=== PATIENT | female | born 1960 ===

== ENCOUNTER 2016-09-09 13:22 | Emergency (ER) | payer MEDICAID ==
[2016-09-09 13:23] VITALS: BMI 35.5
[2016-09-09 13:42] VITALS: RESP 20; TEMP 98.9
--- NOTE | 2016-09-09 14:14 | ED PDOC ---
Arrival/HPI - General Chief Complaint: Upper Extremity Problem/Injury Time Seen by Provider: 09/09/16 14:09 Historian: Patient - History of Present Illness Narrative History of Present Illness (Text): 09/09/16 14:10 56 year old female presents to the emergency department with intermittent left arm discomfort that began five months ago. She states pain begins in the left shoulder and radiates down to the forearm, associated with some tingling. She also reports dizziness described as room spinning. Patient states she last had these symptoms 3 weeks ago, but she experienced them again today at 10:00 so she came to the ER for evaluation. Denies trauma or injury. PMD: Dr. Atkinson Time/Duration: > month Symptom Onset: Gradual Symptom Course: Intermittent Modifying Factors (Text): None Past Medical History - Provider Review Nursing Documentation Reviewed: Yes - Infectious Disease Hx of Infectious Diseases: None - Tetanus Immunization Tetanus Immunization: Unknown - Cardiac Hx Hypertension: Yes - Endocrine/Metabolic Hx Diabetes Mellitus Type 2: Yes - Psychiatric Hx Depression: No Hx Emotional Abuse: No Hx Physical Abuse: No Hx Substance Use: No - Surgical History Hx Section: Yes Hx Tubal Ligation: Yes - Anesthesia Hx Anesthesia Reactions: No Hx Malignant Hyperthermia: No - Suicidal Assessment Feels Threatened In Home Enviroment: No Family/Social History - Physician Review Nursing Documentation Reviewed: Yes Family/Social History: Unknown Family HX Smoking Status: Never Smoked Hx Alcohol Use: No Hx Substance Use: No Hx Substance Use Treatment: No Allergies/Home Meds Allergies/Adverse Reactions: Allergies No Known Allergies Allergy (Verified 09/09/16 13:41) Review of Systems - Physician Review All systems were reviewed & negative as marked: Yes - Review of Systems Eyes: absent: Vision Changes Musculoskeletal: Other (Left arm pain, shoulder radiating to forearm) Neurological: Dizziness (room spinning). absent: Focal Weakness Physical Exam - Physical Exam Narrative Physical Exam (Text): Constitutional: No acute distress. Head: Normocephalic. Atraumatic. Eyes: PERRL. ENT: Moist mucous membranes. Neck: Supple. Cardiovascular: Regular rate. Chest: No tenderness. Respiratory: Clear to auscultation bilaterally. GI: Soft. Nontender. Nondistended. Back: No CVA tenderness. Musculoskeletal: No tenderness or swelling of extremities. Skin: No rash. Neurologic: Alert, no focal deficit. Vital Signs Reviewed: Yes Vital Signs Temp Pulse Resp BP Pulse Ox 09/09/16 15:19 88 20 113/78 98 09/09/16 13:35 98.9 F 102 H 20 106/76 97 Temperature: Afebrile Blood Pressure: Normal Pulse: Tachycardic Respiratory Rate: Normal Appearance: Positive for: Well-Appearing, Non-Toxic Mental Status: Positive for: Alert and Oriented X 3 Medical Decision Making ED Course and Treatment: Impression: 56 year old female presents to the emergency department with left arm pain that began five months ago. Plan: -- EKG -- Reassess and disposition Prior Visits: Notes and results from previous visits were reviewed. Patient was last seen in the Emergency department on 09/18/15 for dizziness and discharged home. Progress Notes: EKG NSR, 80 bpm, no ST/T wave changes. Patient in no acute distress. Months long pains with history of back pain, likely radiculopathy, cervical to arm and lumbar to hip and existing history of vertigo, on Antivert already, with dizziness described as room spinning today. Will discharge home, f/u PMD, return to ER for worsening pain, dyspnea, nausea, vomiting, diaphoresis, or any other problem. - Scribe Statement The provider has reviewed the documentation as recorded by the Sabas Vasquez Provider Scribe Attestation: All medical record entries made by the Sabas were at my direction and personally dictated by me. I have reviewed the chart and agree that the record accurately reflects my personal performance of the history, physical exam, medical decision making, and the department course for this patient. I have also personally directed, reviewed, and agree with the discharge instructions and disposition. Disposition/Present on Arrival - Present on Arrival Any Indicators Present on Arrival: No History of DVT/PE: No History of Uncontrolled Diabetes: No Urinary Catheter: No History of Decub. Ulcer: No History Surgical Site Infection Following: None - Disposition Have Diagnosis and Disposition been Completed?: Yes Diagnosis: Cervical radiculopathy Disposition: HOME/ ROUTINE Disposition Time: 14:38 Patient Plan: Discharge Condition: STABLE Discharge Instructions (ExitCare): Cervical Radiculopathy (ED) Prescriptions: Ibuprofen [Motrin] 600 mg PO Q6 #25 tab Meclizine [Antivert] 25 mg PO TID PRN #20 tab PRN Reason: Dizziness Referrals: Bhupendra Atkinson APN [Primary Care Provider] - Follow up with primary
[2016-09-09 15:21] VITALS: BP 113/78; PULSE 88; O2SAT 98
--- NOTE | 2016-09-10 09:40 | CARD ---
APPROVED REPORT EKG Measurement Heart [id number] <Conclusion> Normal sinus rhythm Normal ECG No change
== END 2016-09-09 15:19 | disposition home or self-care (01) ==
LOC: ED 13:22
DX: M54.12 Radiculopathy, cervical region (principal); I10 Essential (primary) hypertension

== ENCOUNTER 2018-02-17 02:38 | Emergency (ER) | payer MEDICAID ==
[2018-02-17 02:39] VITALS: BMI 35.5
--- NOTE | 2018-02-17 03:34 | ED PDOC ---
Arrival/HPI - General Chief Complaint: Chest Pain Time Seen by Provider: 02/17/18 02:44 Historian: Patient - History of Present Illness Narrative History of Present Illness (Text): 02/17/18 03:16 02/17/18 03:16 57 year old female, whose past medical history includes pre-diabetes, presents to the emergency department complaining of chest pain that began 8-9 hours ago (20:10) associated with left arm tingling sensation. Patient reports chest pain with deep breaths associated with nausea. She reports similar pain 8 months ago, but did not do anything since the pain began to subsided. Patient reports she recently traveled. The patient denies any fever, chills, shortness of breath, abdominal pain, vomiting, diarrhea, urinary symptoms, back pain, neck pain, headache, dizziness, or any other complaints. Time/Duration: Other (8-9 hours) Symptom Onset: Gradual Symptom Course: Unchanged Activities at Onset: Light Context: Home Past Medical History - Provider Review Nursing Documentation Reviewed: Yes - Travel History Have you recently traveled outside [place] w/in the past 3 mons?: Yes - Infectious Disease Hx of Infectious Diseases: None - Tetanus Immunization Tetanus Immunization: Unknown - Reproductive Menopause: Yes - Cardiac Hx Hypertension: Yes - Endocrine/Metabolic Other/Comment: Pre DM - Psychiatric Hx Depression: No Hx Emotional Abuse: No Hx Physical Abuse: No Hx Substance Use: No - Surgical History Hx Section: Yes Hx Tubal Ligation: Yes - Anesthesia Hx Anesthesia: Yes Hx Anesthesia Reactions: No Hx Malignant Hyperthermia: No - Suicidal Assessment Feels Threatened In Home Enviroment: No Family/Social History - Physician Review Nursing Documentation Reviewed: Yes Family/Social History: No Known Family HX Smoking Status: Never Smoked Hx Alcohol Use: No Hx Substance Use: No Hx Substance Use Treatment: No Allergies/Home Meds Allergies/Adverse Reactions: Allergies No Known Allergies Allergy (Verified 02/17/18 02:57) Home Medications: Home Meds Medication Instructions Recorded Confirmed No Known Home Med 02/17/18 02/17/18 Review of Systems - Physician Review All systems were reviewed & negative as marked: Yes - Review of Systems Constitutional: absent: Fevers, Other (Chills) Respiratory: absent: SOB Cardiovascular: Chest Pain Gastrointestinal: Nausea. absent: Abdominal Pain, Diarrhea, Vomiting Genitourinary Female: absent: Dysuria, Frequency, Hematuria Musculoskeletal: absent: Back Pain, Neck Pain Neurological: Other (left arm tingling sensation). absent: Headache, Dizziness Physical Exam Vital Signs Reviewed: Yes Vital Signs Temp Pulse Resp BP Pulse Ox 02/17/18 02:46 98.4 F 82 20 143/96 H 97 Temperature: Afebrile Blood Pressure: Hypertensive Pulse: Regular Respiratory Rate: Normal Appearance: Positive for: Well-Appearing, Non-Toxic, Comfortable Pain Distress: None Mental Status: Positive for: Alert and Oriented X 3 - Systems Exam Head: Present: Atraumatic, Normocephalic Pupils: Present: PERRL Extroacular Muscles: Present: EOMI Conjunctiva: Present: Normal Mouth: Present: Moist Mucous Membranes Neck: Present: Normal Range of Motion Respiratory/Chest: Present: Clear to Auscultation, Good Air Exchange. No: Respiratory Distress, Accessory Muscle Use Cardiovascular: Present: Regular Rate and Rhythm, Normal S1, S2. No: Murmurs Abdomen: No: Tenderness, Distention, Peritoneal Signs Back: Present: Normal Inspection Upper Extremity: Present: Normal Inspection. No: Cyanosis, Edema Lower Extremity: Present: Normal Inspection. No: Edema Neurological: Present: GCS=15, CN II-XII Intact, Speech Normal Skin: Present: Warm, Dry, Normal Color. No: Rashes Psychiatric: Present: Alert, Oriented x 3, Normal Insight, Normal Concentration Medical Decision Making ED Course and Treatment: 02/17/18 03:16 Impression: 57 year old female presents complaining of chest pain with deep respiration that began 8-9 hours ago (20:10) associated with left arm tingling sensation. Plan: -- EKG -- Labs -- CXR -- Reassess and disposition Progress Notes: EKG shows NSR at 86 BPM with normal intervals, normal axis, No ST elevation or depression. Interpreted by me 02/17/18 04:25 Heart score: 2 points low score 02/17/18 04:30 CXR Impression: As read by [email or web address]. Results of w/u (labs, ekg and cxr netgative) d/w patient. Plan repeat trop. Patient agreeable w/POC. 02/17/18 06:46 Trop neg x 2. Patient comfortable throughout course in ED. Plan d/c home to f/u w/pcp and RTED for new or concerning symptoms. Patient verbalized understanding of d/c instructions and was given an opportunity to ask questions. - RAD Interpretation Fire Control Assistant: ED Physician - EKG Interpretation Interpreted by ED Physician: Yes Type: 12 lead EKG - Scribe Statement The provider has reviewed the documentation as recorded by the Sabas Jarquin Provider Scribe Attestation: All medical record entries made by the Scribe were at my direction and personally dictated by me. I have reviewed the chart and agree that the record accurately reflects my personal performance of the history, physical exam, medical decision making, and the department course for this patient. I have also personally directed, reviewed, and agree with the discharge instructions and disposition. Disposition/Present on Arrival - Present on Arrival Any Indicators Present on Arrival: No History of DVT/PE: No History of Uncontrolled Diabetes: No Urinary Catheter: No History of Decub. Ulcer: No History Surgical Site Infection Following: None - Disposition Have Diagnosis and Disposition been Completed?: Yes Diagnosis: Atypical chest pain Disposition: HOME/ ROUTINE Disposition Time: 06:48 Patient Plan: Discharge Patient Problems: Current Active Problems Problem Status Onset Atypical chest pain Acute Condition: STABLE Discharge Instructions (ExitCare): Chest Pain (ED), Chest Pain That Is Not Caused by the Heart (DC) Additional Instructions: TARYN GRAYSON, thank you for letting us take care of you today. Your provider was Tiffany Love MD and you were treated for CHEST. The emergency medical care you received today was directed at your acute symptoms. If you were prescribed any medication, please fill it and take as directed. It may take several days for your symptoms to resolve. Return to the Emergency Department if your symptoms worsen, do not improve, or if you have any other problems. Please contact your doctor or call one of the physicians/clinics you have been referred to that are listed on the Patient Visit Information form that is included in your discharge packet. Bring any paperwork you were given at discharge with you along with any medications you are taking to your follow up visit. Our treatment cannot replace ongoing medical care by a primary care provider outside of the emergency department. Thank you for allowing the [facility] team to be part of your care today. If you had an X-Ray or CT scan: A Radiologist will review the ED reading if any change in treatment is needed we will contact you. If you had a blood, urine, or wound culture: It will take several days for the results, if any change in treatment is needed we will contact you. If you had an STI test: It will take 48 hours for the results. Please call after 1 week if you have not heard back. Referrals: [facility] [Outside] - Follow up with primary [facility] [place] - Follow up with primary Sandy Remy MD [Medical Doctor] - Follow up with primary Forms: [employer] (Belgian)
[2018-02-17 03:39] LABS: BASO # 0.01 K/mm3 (0.0-2.0); BASO % 0.2 % (0.0-3.0); EOS # 0.3 (0.0-0.7); EOS % 4.5 % (1.5-5.0); GRAN # 2.71 (1.4-6.5); GRAN % 45.2 % (50.0-68.0); HEMOGLOBIN 12.7 g/dL (12.0-16.0); LYMPH # 2.7 (1.2-3.4); LYMPH % 44.4 % (22.0-35.0); MEAN CELL VOLUME 88.2 fl (80.0-105.0); MEAN CORPUSCULAR HEMOGLOBIN 28.3 pg (25.0-35.0); MEAN CORPUSCULAR HGB CONC 32.2 g/dl (31.0-37.0); MEAN PLATELET VOLUME 10.5 fl (7.0-11.0); MONO # 0.3 (0.1-0.6); MONO % 5.7 % (1.0-6.0); RBC 4.48 10^6/uL (3.5-6.1); RED CELL DISTRIBUTION WIDTH 13.2 % (11.5-14.5)
[2018-02-17 03:54] LABS: ALB/GLOB RATIO 1.1 (1.1-1.8); ALT/SGPT 26 U/L (7-56); AST/SGOT 33 U/L (14-36); BLOOD UREA NITROGEN 14 mg/dL (7-21); CALCIUM 8.7 mg/dL (8.4-10.5); GFR NON-AFRICAN AMERICAN > 60
[2018-02-17 04:05] LABS: TROPONIN I < 0.01 ng/mL
[2018-02-17 07:02] VITALS: BP 128/79; PULSE 72; RESP 18; TEMP 98.2; O2SAT 100
--- NOTE | 2018-02-17 09:27 | RAD ---
HISTORY: chest pain COMPARISON: Chest x-ray performed 04/05/12 TECHNIQUE: Chest, one view. FINDINGS: Examination limited by habitus. LUNGS: No focal consolidation. Please note that chest x-ray has limited sensitivity for the detection of pulmonary masses. PLEURA: No significant pleural effusion identified. No definite pneumothorax . CARDIOVASCULAR: Heart size appears within normal limits. No significant atherosclerotic calcification present. OSSEOUS STRUCTURES: No acute osseous abnormality identified. VISUALIZED UPPER ABDOMEN: Unremarkable. OTHER FINDINGS: None. IMPRESSION: No focal consolidation.
--- NOTE | 2018-02-17 14:44 | CARD ---
APPROVED REPORT Date of service: 02/17/2018 EKG Measurement Heart [id number] <Conclusion> Normal sinus rhythm Normal Electrocardiogram
== END 2018-02-17 07:02 | disposition home or self-care (01) ==
LOC: ED 02:38
DX: R07.89 Other chest pain (principal); I10 Essential (primary) hypertension; R73.03 Prediabetes

== ENCOUNTER 2018-07-31 12:04 | Observation (INO) | payer MEDICAID ==
[2018-07-31 12:23] VITALS: BMI 38.7
[2018-07-31] MEDS ORDERED: Aspirin 325 mg EC Tablets PO STA (12:23)
--- NOTE | 2018-07-31 12:41 | ED PDOC ---
Arrival/HPI - General Time Seen by Provider: 07/31/18 12:14 Historian: Patient, Family (Granddaughter.) - History of Present Illness Narrative History of Present Illness (Text): 07/31/18 12:38 57 year old female, whose past medical history includes pre-diabetes, presents to the emergency department complaining of chronic left sided chest pain for years that began to radiate to the upper extremities last night. Patient states not having any history of smoking or alcohol usage. Patient denies shortness of breath, abdominal pain, vomiting, nausea, allergies, headache, dizziness, or any other complaints. Granddaughter functioning as special events assistant as per patient's request. PMD: Nick. 4 Time/Duration: 24 hours, Other Symptom Onset: Gradual Symptom Course: Unchanged Context: Home Associated Symptoms (Text): 07/31/18 12:47 Patient complains of chest pain with radiation to the left upper extremity since last night. She has had similar episodes multiple times over the last year. She also complains of numbness of her left upper and left lower extremity. The granddaughter translates. No dyspnea. No diaphoresis. No nausea or vomiting. No dizziness or lightheadedness. No hypertension or diabetes. Patient is a never smoker. No trauma. 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 Past Medical History - Provider Review Nursing Documentation Reviewed: Yes - Infectious Disease Hx of Infectious Diseases: None - Tetanus Immunization Tetanus Immunization: Unknown - Cardiac Hx Hypertension: Yes - Endocrine/Metabolic Other/Comment: Pre DM - Psychiatric Hx Depression: No Hx Emotional Abuse: No Hx Physical Abuse: No Hx Substance Use: No - Surgical History Hx Section: Yes Hx Tubal Ligation: Yes - Anesthesia Hx Anesthesia: Yes Hx Anesthesia Reactions: No Hx Malignant Hyperthermia: No - Suicidal Assessment Feels Threatened In Home Enviroment: No Family/Social History - Physician Review Nursing Documentation Reviewed: Yes Family/Social History: Unknown Family HX Smoking Status: Never Smoked Hx Alcohol Use: No Hx Substance Use: No Hx Substance Use Treatment: No Allergies/Home Meds Allergies/Adverse Reactions: Allergies No Known Allergies Allergy (Verified 02/17/18 02:57) Home Medications: Home Meds Medication Instructions Recorded Confirmed No Known Home Med 02/17/18 02/17/18 Review of Systems - Physician Review All systems were reviewed & negative as marked: Yes - Review of Systems Constitutional: absent: Fevers Respiratory: absent: SOB, Cough Cardiovascular: Chest Pain (Chest pain radiating to the upper bilateral extremities. ). absent: Palpitations, Syncope Gastrointestinal: absent: Abdominal Pain, Nausea, Vomiting Neurological: absent: Headache, Dizziness Physical Exam Vital Signs Reviewed: Yes Vital Signs Temp Pulse Resp BP Pulse Ox 07/31/18 12:31 97.9 F 87 20 138/63 98 Temperature: Afebrile Blood Pressure: Normal Pulse: Regular Respiratory Rate: Normal Appearance: Positive for: Well-Appearing, Non-Toxic, Comfortable, Other (Obese) Pain Distress: None Mental Status: Positive for: Alert and Oriented X 3 - Systems Exam Head: Present: Atraumatic, Normocephalic Pupils: Present: PERRL Extroacular Muscles: Present: EOMI Conjunctiva: Present: Normal Mouth: Present: Moist Mucous Membranes Pharnyx: No: ERYTHEMA, EXUDATE, TONSILS ENLARGED Neck: Present: Normal Range of Motion Respiratory/Chest: Present: Clear to Auscultation, Good Air Exchange. No: Respiratory Distress, Accessory Muscle Use, Tender to Palpation Cardiovascular: Present: Regular Rate and Rhythm, Normal S1, S2. No: Murmurs Abdomen: No: Tenderness, Distention, Peritoneal Signs, Rebound, Guarding Upper Extremity: Present: Normal Inspection. No: Cyanosis, Edema Lower Extremity: Present: Normal Inspection. No: Edema Neurological: Present: GCS=15, CN II-XII Intact, Speech Normal, Motor Func Grossly Intact, Normal Sensory Function, Normal Cerebellar Funct, Gait Normal Skin: Present: Warm, Dry, Normal Color. No: Rashes Psychiatric: Present: Alert Medical Decision Making ED Course and Treatment: 07/31/18 12:40 Impression: 57 y.o female who presents to emergency department complaining of chest pain radiating to the upper extremities. Plan: -- Labs -- EKG -- IV fluids -- Aspirin -- Chest X-ray -- Reassess and disposition Prior Visits: Notes and results from previous visits were reviewed. Progress Notes: 07/31/18 12:49 EKG shows normal sinus rhythm rate approximately 80 with a right bundle branch block and no acute ST or T wave changes. 07/31/18 13:[address] Tristan who accepts to her service on telemetry observation. - Lab Interpretations Narrative Lab Interpretation (Text): 07/31/18 13:45 07/31/18 13:15 07/31/18 13:15 Lab Results 07/31/18 13:15: Sodium 138, Potassium 4.5, Chloride 101, Carbon Dioxide 32, Anion Gap 11, BUN 13, Creatinine 0.7, Est GFR ( Amer) > 60, Est GFR (Non- Af Amer) > 60, Random Glucose 98, Calcium 9.0, Magnesium 2.0, Total Bilirubin 0.4, AST 23, ALT 17, Alkaline Phosphatase 58, Lactate Dehydrogenase 359, Total Creatine Kinase 66, Troponin I Pending, Total Protein 7.6, Albumin 3.8, Globulin 3.8, Albumin/Globulin Ratio 1.0 L 07/31/18 13:15: WBC 5.5, RBC 4.55, Hgb 13.0, Hct 40.5, MCV 89.0, MCH 28.6, MCHC 32.1, RDW 13.2, Plt Count 244, MPV 10.9, Neut % (Auto) 41.7 L, Lymph % (Auto) 45.1 H, [place] % (Auto) 7.3 H, Eos % (Auto) 5.5 H, Baso % (Auto) 0.4, Lymph # (Auto) 2.5, [place] # (Auto) 0.4, Eos # (Auto) 0.3, Baso # (Auto) 0.02, Absolute Neuts (auto) 2.27 I have reviewed the lab results: Yes - RAD Interpretation Narrative RAD Interpretations (Text): 07/31/18 12:44 Impression: Minimum bibasilar at electasis. Radiology Orders: 07/31/18 12:23 CHEST PORTABLE [RAD] Stat Chest one view as read by the radiologist shows atelectasis. No infiltrate effusion or cardiomegaly. Carpenter Labor Supervisor: Radiologist - Medication Orders Current Medication Orders: Discontinued Medications Aspirin (Ecotrin) 325 mg PO STAT STA Stop: 07/31/18 12:24 - Scribe Statement The provider has reviewed the documentation as recorded by the Herlindaibmargarito Kumari All medical record entries made by the Scribe were at my direction and personally dictated by me. I have reviewed the chart and agree that the record accurately reflects my personal performance of the history, physical exam, medical decision making, and the department course for this patient. I have also personally directed, reviewed, and agree with the discharge instructions and disposition. Disposition/Present on Arrival - Present on Arrival Any Indicators Present on Arrival: No History of DVT/PE: No History of Uncontrolled Diabetes: No Urinary Catheter: No History of Decub. Ulcer: No History Surgical Site Infection Following: None - Disposition Have Diagnosis and Disposition been Completed?: Yes Diagnosis: Chest pain, Paresthesia Disposition: HOSPITALIZED Disposition Time: 13:58 Patient Plan: Observation, Telemetry Condition: GOOD Discharge Instructions (ExitCare): Chest Pain (ED)
--- NOTE | 2018-07-31 12:48 | RAD ---
Date of service: 07/31/2018 HISTORY: cp chest pain COMPARISON: Comparison chest dated 02/17/2018. TECHNIQUE: 1 view obtained. FINDINGS: LUNGS: Minimal bibasilar atelectasis. PLEURA: No significant pleural effusion identified, no pneumothorax apparent. CARDIOVASCULAR: No aortic atherosclerotic calcification present. Normal cardiac size. No pulmonary vascular congestion. OSSEOUS STRUCTURES: No significant abnormalities. VISUALIZED UPPER ABDOMEN: Normal. OTHER FINDINGS: None. IMPRESSION: Minimal bibasilar atelectasis.
[2018-07-31 13:39] LABS: BASO # 0.02 K/mm3 (0.0-2.0); BASO % 0.4 % (0.0-3.0); EOS # 0.3 (0.0-0.7); EOS % 5.5 % (1.5-5.0); LYMPH # 2.5 (1.2-3.4); LYMPH % 45.1 % (22.0-35.0); MEAN CORPUSCULAR HEMOGLOBIN 28.6 pg (25.0-35.0); MEAN CORPUSCULAR HGB CONC 32.1 g/dl (31.0-37.0); MEAN PLATELET VOLUME 10.9 fl (7.0-11.0); MONO # 0.4 (0.1-0.6); MONO % 7.3 % (1.0-6.0); RBC 4.55 10^6/uL (3.5-6.1); RED CELL DISTRIBUTION WIDTH 13.2 % (11.5-14.5); WHITE BLOOD COUNT 5.5 10^3/uL (4.5-11.0)
[2018-07-31 13:43] LABS: ALBUMIN 3.8 g/dL (3.0-4.8); ALT/SGPT 17 U/L (7-56); AST/SGOT 23 U/L (14-36); BLOOD UREA NITROGEN 13 mg/dL (7-21); GFR NON-AFRICAN AMERICAN > 60
[2018-07-31 13:53] LABS: TROPONIN I < 0.01 ng/mL
[2018-07-31] MEDS: POLYETHYLENE GLYCOL 3350 17 GM/Dose PACKET PO SCH (15:45)
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
[2018-07-31 17:45] VITALS: RESP 20
--- NOTE | 2018-07-31 18:17 | CARD ---
APPROVED REPORT Date of service: 07/31/2018 EKG Measurement Heart [id number] <Conclusion> Normal sinus rhythm Possible Left atrial enlargement Incomplete right bundle branch block Borderline ECG
--- NOTE | 2018-07-31 18:29 | CT ---
Date of service: 07/31/2018 PROCEDURE: CT Cervical Spine without contrast HISTORY: arm numbness/tingling COMPARISON: None available. TECHNIQUE: Axial computed tomography images were obtained of the cervical spine without the use of intravenous contrast. Coronal and sagittal reformatted images were created and reviewed. Radiation dose: Total exam DLP = 579.9 mGy-cm. This CT exam was performed using one or more of the following dose reduction techniques: Automated exposure control, adjustment of the mA and/or kV according to patient size, and/or use of iterative reconstruction technique. FINDINGS: Examination is limited due to extensive beam hardening artifacts in the lower cervical spine. VERTEBRAE: There is normal alignment of the cervical vertebral bodies. There is straightening of the cervical spine with loss of normal cervical lordosis. There is no acute fracture or traumatic anterior listhesis. The craniocervical junction is normal. The atlantoaxial joint is normal. There is mild diffuse bone demineralization. DISCS/SPINAL CANAL/NEURAL FORAMINA: Evaluation of the discs and spinal cord is limited on noncontrast CT examination there is mild multilevel degenerative disc disease due to combination of disc osteophyte complexes, uncovertebral joint hypertrophy and multilevel facet arthropathy with multilevel mild to moderate neural foraminal narrowing without central spinal canal stenosis. PARASPINAL SOFT TISSUES: Unremarkable. OTHER FINDINGS: None. IMPRESSION: Limited examination due to extensive beam hardening artifacts in the lower cervical spine. Evaluation of the discs and spinal cord is limited on noncontrast CT examination. Allowing for this, multilevel degenerative disc disease with variable degree of mild to moderate neural foraminal narrowing without central spinal canal stenosis. If there is a persistent neurologic symptom, MRI of the cervical spine without intravenous contrast would be the modality of choice for definitive evaluation of disc disease.
[2018-07-31] MEDS ORDERED: Pneumococcal 23-Valent Vaccine IM ONE (20:26)
[2018-08-01 03:24] VITALS: O2SAT 98
[2018-08-01] MEDS ORDERED: Pantoprazole 40 mg EC Tab PO SCH (06:00)
[2018-08-01 08:03] LABS: HDL CHOLESTEROL 29 mg/dL (29-60)
[2018-08-01 08:17] LABS: LDL CHOLESTEROL 98 mg/dL (0-129)
[2018-08-01 09:02] LABS: BASO # 0.02 K/mm3 (0.0-2.0); BASO % 0.3 % (0.0-3.0); EOS # 0.3 (0.0-0.7); EOS % 4.1 % (1.5-5.0); HEMOGLOBIN 13.5 g/dL (12.0-16.0); LYMPH # 2.5 (1.2-3.4); LYMPH % 39.9 % (22.0-35.0); MEAN CELL VOLUME 88.6 fl (80.0-105.0); MEAN CORPUSCULAR HEMOGLOBIN 28.5 pg (25.0-35.0); MEAN CORPUSCULAR HGB CONC 32.1 g/dl (31.0-37.0); MEAN PLATELET VOLUME 11.4 fl (7.0-11.0); MONO # 0.5 (0.1-0.6); RBC 4.74 10^6/uL (3.5-6.1); RED CELL DISTRIBUTION WIDTH 13.1 % (11.5-14.5); WHITE BLOOD COUNT 6.3 10^3/uL (4.5-11.0)
[2018-08-01 09:19] LABS: ALBUMIN 3.9 g/dL (3.0-4.8); ALT/SGPT 16 U/L (7-56); AST/SGOT 27 U/L (14-36); BLOOD UREA NITROGEN 13 mg/dL (7-21); CALCIUM 8.8 mg/dL (8.4-10.5); GFR NON-AFRICAN AMERICAN > 60
[2018-08-01] MEDS: POLYETHYLENE GLYCOL 3350 17 GM/Dose PACKET PO SCH (10:55)
[2018-08-01 12:22] VITALS: BP 131/92; PULSE 73; TEMP 98.3
--- NOTE | 2018-08-01 13:08 | CON ---
DATE OF CONSULTATION: 08/01/2018 CARDIOLOGY CONSULTATION HISTORY: The patient is a 57-year-old woman, who presents with predominately neck pain, chronic atypical chest pain which she has had for many years, persistent pain. PAST MEDICAL HISTORY: Free of cardiac disease. No history of myocardial infarction. No angina. No shortness of breath. Her cardiac risk factors include being prediabetic without medications at home. No hypercholesterolemia. SOCIAL HISTORY: The patient does not smoke. REVIEW OF SYSTEMS: A 14-point review of systems is free of cardiac symptoms. PHYSICAL EXAMINATION: VITAL SIGNS: Blood pressure 121/83, the heart rate is in the 80s. NECK: Negative JVD. LUNGS: Without rales. CARDIAC: Heart rate S1, S2. EXTREMITIES: Without edema. LABORATORY DATA: Troponins are negative x4. EKG is within normal limits. Hemoglobin is normal. CT scan of the neck shows spinal stenosis and degenerative changes. IMPRESSION: 1. Atypical chest pain. 2. No evidence for acute coronary syndrome. 3. Spinal stenosis. 4. 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 PLAN: Given these findings, there is no evidence for acute cardiac issues. We will DC telemetry today. I have discussed with the patient through her family about arranging for an outpatient cardiac workup once her cervical spine disease is improved. Narciso Amin MD
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
--- NOTE | 2018-08-01 18:51 | CARD ---
APPROVED REPORT Date of service: 08/01/2018 EXAM: Two-dimensional and M-mode echocardiogram with Doppler and color Doppler. INDICATION Chest Pain 2D DIMENSIONS Left Atrium (2D)3.3 (1.6-4.0cm)IVSd1.2 (0.7-1.1cm) LVDd4.8 (3.9-5.9cm)PWd1.2 (0.7-1.1cm) LVDs3.1 (2.5-4.0cm)FS (%) 36.6 % LVEF (%)66.3 (>50%) M-Mode DIMENSIONS Aortic Root3.00 (2.2-3.7cm)Aortic Cusp Exc.1.90 (1.5-2.0cm) Aortic Valve AoV Peak Kjkegwri494.0cm/Chandrakant Peak GR.6mmHg Mitral Valve MV E Doprpeta34.8cm/sMV A Hlckabcu54.3cm/sE/A ratio0.8 TDI E/Lateral E'0.0E/Medial E'0.0 Tricuspid Valve TR Peak Ppsfjpqg887jo/sRAP [id number] Peak Gr.20mmHg [id number] LEFT VENTRICLE The left ventricle is normal size. There is normal left ventricular wall thickness. The left ventricular function is normal. The left ventricular ejection fraction is within the normal range. There is normal LV segmental wall motion. Transmitral Doppler flow pattern is Grade I-abnormal relaxation pattern. RIGHT VENTRICLE The right ventricle is normal size. There is normal right ventricular wall thickness. The right ventricular systolic function is normal. ATRIA The left atrium size is normal. The right atrium size is normal. AORTIC VALVE The aortic valve is normal in structure. No aortic regurgitation is present. There is no aortic valvular stenosis. MITRAL VALVE The mitral valve is normal in structure. There is no mitral valve regurgitation noted. There is no mitral valve stenosis. TRICUSPID VALVE The tricuspid valve is normal in structure. There is mild tricuspid regurgitation. PULMONIC VALVE The pulmonary valve is normal in structure. There is no pulmonic valvular regurgitation. GREAT VESSELS The aortic root is normal in size. The IVC is normal in size and collapses >50% with inspiration. PERICARDIAL EFFUSION There is no pericardial effusion. <Conclusion> There is normal left ventricular wall thickness. The left ventricular function is normal. The left ventricular ejection fraction is within the normal range. There is normal LV segmental wall motion. Transmitral Doppler flow pattern is Grade I-abnormal relaxation pattern. There is mild tricuspid regurgitation.
== END 2018-08-01 13:56 | disposition home or self-care (01) ==
LOC: ED 12:04 → ERH 13:56 → 2RSO 15:14
PROVIDERS: ADMIT Internal Medicine; ATTEND Internal Medicine
DX: R07.89 Other chest pain (principal); G62.9 Polyneuropathy, unspecified; G89.29 Other chronic pain; I10 Essential (primary) hypertension; I45.10 Unspecified right bundle-branch block; J98.11 Atelectasis; K59.00 Constipation, unspecified; M48.00 Spinal stenosis, site unspecified; Z79.82 Long term (current) use of aspirin; Z79.899 Other long term (current) drug therapy; Z82.49 Family history of ischemic heart disease and other diseases of the circulatory system; Z98.51 Tubal ligation status
CPT/HCPCS: 36415; 71045; 72125; 80053; 80061; 82550; 83036; 83615; 83735; 84443; 84484; 85025; 93005; 93306; 99285; G0378